=== PATIENT | female | born 1995 | race Asian ===

== ENCOUNTER 2020-02-04 12:41 | Emergency (ER) | payer OTHER ==
[~2020-02-04] VITALS: Ht 160 cm; Wt 54.4 kg
[2020-02-04] MEDS ORDERED: MEDROLDOSEPACK PO (15:49)
[2020-02-04] MEDS ORDERED: DIPHENHIST50 MG PO (15:49)
[2020-02-04] MEDS ORDERED: EPIPEN 2-P0.3 MG/0.3 IM (16:06)
[2020-02-04 16:41] VITALS: BP 109/70
== END 2020-02-04 16:41 | disposition home or self-care (01) ==
LOC: ER 12:41
DX: T78.09XA Anaphylactic reaction due to other food products, initial encounter (principal)